=== PATIENT | female | born 1980 | race Caucasian/White ===

== ENCOUNTER 2024-01-14 23:51 | Emergency (ER) | payer BC, SELFPAY ==
[2024-01-14 23:56] VITALS: BP 142/89; PULSE 74; RESP 20; TEMP 36.6; O2SAT 99; BMI 25.1
--- NOTE | 2024-01-15 00:05 | ED.CHESTPAIN ---
HPI - Chest Pain General Time Seen by Provider: 00:06 Date Seen: 01/15/24 Chief Complaint: Chest Pain Stated Complaint: chest tightness, PE in 2008 Time Seen by Provider: 01/15/24 00:05 Source: patient, RN notes reviewed and old records reviewed Mode of arrival: ambulatory Limitations: no limitations History of Present Illness HPI narrative: 43-year-old female who presents today with right-sided chest pain started today. Patient notes some nasal congestion and sore throat 2 days ago, that has resolved. Notes some tightness in the right chest starting today. No cough, no leg swelling. Says this feels a little similar to when she had her PE in the distant past. No abdominal pain. Has not taken anything for this. Not currently on blood thinners, history of factor 5. Related Data Home Medications ?Medication ?Instructions ?Recorded ?Confirmed No Known Home Medications 01/15/24 01/15/24 Allergies Allergy/AdvReac Type Severity Reaction Status Date / Time No Known Drug Allergies Allergy Verified 01/15/24 00:01 Exam Narrative Exam Narrative: General: Well-developed and well-nourished, no acute distress Head: Atraumatic and normocephalic Eyes: Pupils are equal reactive, extraocular motions intact, conjunctiva clear ENT: External nose and ears are normal, posterior pharynx without erythema or exudate Neck: No midline cervical tenderness, full spontaneous range of motion the neck, trachea midline, no adenopathy Heart: Regular rate and rhythm no murmurs or thrills Lungs: Clear to auscultation bilaterally without wheezes or crackles, mild right sternal costal margin tenderness Abdomen: Soft, nontender, nondistended with active bowel sounds Musculoskeletal: No tenderness, deformity, or edema Neurologic: Awake, alert, and oriented x3, no gross focal neurologic deficits, cranial nerves intact as tested Psych: Mood and affect are appropriate Skin: No rashes Const Vital Signs, click to edit/add: Vital Signs - 24 hr 01/14/24 23:56 Temperature 97.9 F Pulse Rate [Right Pulse Oximeter] 74 Respiratory Rate 20 Blood Pressure [Right Upper Arm] 142/89 H Pulse Oximetry 99 Oxygen Delivery Method Room Air Course Course ED Course: Patient seen examined, no prior records available reviewed. Patient presents today with some right-sided chest pain after upper respiratory symptoms a couple of days ago. On exam here, vital is stable with no hypoxia, no tachycardia. Patient is PERC negative, however given history of unprovoked PE in the past is not low risk by well's criteria. Discussed plans for testing, D-dimer will be ordered initially and proceed to CT PE study depending on results. Initial EKG is reassuring. EKG ordered and independently interpreted by me performed at 12:02 a.m. demonstrates sinus rhythm rate 75, no acute ST elevations or depressions, normal intervals, normal axis, QTC 431, MT 146 Reevaluation(s) Time of Reevaluation #1: 00:42 Reevaluation #1: With chest x-ray ordered and independently interpreted by me with no acute infiltrates, no hemothorax or pneumothorax. Labs ordered and independently interpreted by me with normal CBC, troponin negative. Time of Reevaluation #2: 00:56 Reevaluation #2: Labs ordered and independently interpreted by me with negative D-dimer, normal basic panel. Time of Reevaluation #3: 01:16 Reevaluation #3: Updated patient with diagnosis and plan, questions answered and stable for discharge. Vital Signs Vital signs: Initial Vital Signs Temperature 97.9 F 01/14/24 23:56 Temperature Source Temporal Artery Scan 01/14/24 23:56 Pulse Rate 74 01/14/24 23:56 Pulse Rhythm Regular 01/14/24 23:56 Pulse Strength 3+ Normal 01/14/24 23:56 Respiratory Rate 20 01/14/24 23:56 Blood Pressure 142/89 H 01/14/24 23:56 Blood Pressure Mean 106 H 01/14/24 23:56 Blood Pressure Position Sitting 01/14/24 23:56 Pulse Oximetry 99 01/14/24 23:56 Oxygen Delivery Method Room Air 01/14/24 23:56 Vital Signs Temperature 97.9 F 01/14/24 23:56 Pulse Rate 74 01/14/24 23:56 Respiratory Rate 20 01/14/24 23:56 Blood Pressure 142/89 H 01/14/24 23:56 Pulse Oximetry 99 01/14/24 23:56 Oxygen Delivery Method Room Air 01/14/24 23:56 Temperature 97.9 F 01/14/24 23:56 Pulse Rate 74 01/14/24 23:56 Respiratory Rate 20 01/14/24 23:56 Blood Pressure 142/89 H 01/14/24 23:56 Pulse Oximetry 99 01/14/24 23:56 Oxygen Delivery Method Room Air 01/14/24 23:56 MDM - Chest Pain Lab Data Labs: Lab Results 01/15/24 01/15/24 Range/Units 00:25 00:28 WBC 6.06 (4.50-11.00) K/uL RBC 4.32 (4.00-5.20) m/uL Hgb 13.2 (12.0-16.0) gm/dL Hct 38.2 (33.0-51.0) % MCV 88 (80-100) fL MCH 31 (26-34) pg MCHC 35 (32-36) gm/dL RDW Coeff of Capo 11.4 L (11.5-15.5) % Plt Count 234 (140-440) K/uL Neut % (Auto) 46.3 (42.0-72.0) % Lymph % (Auto) 45.9 H (20-44) % Carlisle % (Auto) 6.3 (0.0-11.0) % Eos % (Auto) 0.5 (0.0-7.0) % Baso % (Auto) 0.3 (0.0-3.0) % Neut # (Auto) 2.81 (1.7-7.0) K/uL Lymph # (Auto) 2.80 (0.90-2.90) K/uL Carlisle # (Auto) 0.40 (0.00-0.90) K/UL Eos # (Auto) 0.03 (0.00-0.50) K/uL Baso # (Auto) 0.02 (0.00-0.30) K/uL Abs Immat Gran (auto) 0.04 (0.00-0.30) K/uL Imm/Tot Granulo (auto) 0.7 % D-Dimer Quant (PE/DVT) 0.44 (0.00-0.50) ug/ml Sodium 138 (135-149) mmol/L Potassium 3.7 (3.6-5.1) mmol/L Chloride 106 (96-114) mmol/L Carbon Dioxide 25 (20-32) mmol/L Anion Gap 7 (7-15) mEq/L BUN 16 (5-24) mg/dL Creatinine 0.8 (0.5-1.5) mg/dL Estimated Creat Clear 103.43 Estimated GFR 95 ml/min Glucose 94 (60-115) mg/dL Calcium 9.0 (8.4-10.6) mg/dL HCG, Qual Negative (Negative) Lab Acknowledgement Test Added POC Troponin I 0.00 L (0.01-0.04) ng/ml Discharge Plan Discharge Clinical Impression: Atypical chest pain Patient Disposition: Home, Self-Care Condition: Stable Instructions: Noncardiac Chest Pain (ED), Chest Wall Pain (ED) Additional Instructions: Tylenol and ibuprofen as needed for pain Activity Level: Activity as Tolerated Discharge Diet: Regular Prescriptions: No Action No Known Home Medications Follow Up/Referrals: Provider,Not a Local [Primary Care Provider] - Stand Alone Forms: [facility] Info Instructions
--- NOTE | 2024-01-15 00:17 | CRLHL7_ITS ---
For Patients: As a result of the Cures Act, medical imaging exams and procedure reports are released immediately into your electronic medical record. You may view this report before your referring provider. If you have questions, please contact your health care provider. INDICATION: Dyspnea. TECHNIQUE: Chest radiograph, 1 view. COMPARISON: None. FINDINGS: Cardiovascular/Mediastinum: Normal heart size. Unremarkable. Lungs: No focal consolidation. Airways: Trachea remains midline. Pleura: Trace left pleural effusion. No right pleural effusion. No pneumothorax. Bones: No acute osseous abnormalities. Upper abdomen: Unremarkable. IMPRESSION: Trace left pleural effusion. Otherwise, no other acute cardiopulmonary process. Dictated by Jose Fox MD @ 01/15/2024 1:22:02 AM (Electronically Signed)
[2024-01-15 00:31] LABS: Basophils Absolute Auto 0.02 K/uL (0.00-0.30); Basophils Percent Auto 0.3 % (0.0-3.0); Eosinophils Absolute Auto 0.03 K/uL (0.00-0.50); Eosinophils Percent Auto 0.5 % (0.0-7.0); Hematocrit 38.2 % (33.0-51.0); Hemoglobin* 13.2 gm/dL (12.0-16.0); Immature Granulocytes Abs Auto 0.04 K/uL (0.00-0.30); Immature Granulocytes Pct Auto 0.7 %; Lymphocytes Percent Auto 45.9 % (20-44); Mean Corpuscular HGB Conc 35 gm/dL (32-36); Mean Corpuscular Hemoglobin 31 pg (26-34); Mean Corpuscular Volume 88 fL (80-100); Monocytes Percent Auto 6.3 % (0.0-11.0); Neutrophils Absolute Auto 2.81 K/uL (1.7-7.0); Neutrophils Percent Auto 46.3 % (42.0-72.0); Platelet Count* 234 K/uL (140-440); RDW Coefficient of Variation % 11.4 % (11.5-15.5); Red Blood Count 4.32 m/uL (4.00-5.20); White Blood Count* 6.06 K/uL (4.50-11.00)
[2024-01-15 00:32] VITALS: O2SAT 99
[2024-01-15 00:37] LABS: Slide Review Reflex No
[2024-01-15 00:43] LABS: Chloride* 106 mmol/L (96-114); Potassium* 3.7 mmol/L (3.6-5.1); Sodium* 138 mmol/L (135-149)
[2024-01-15 00:46] LABS: Anion Gap 7 mEq/L (7-15); Blood Urea Nitrogen* 16 mg/dL (5-24); Carbon Dioxide* 25 mmol/L (20-32); Creatinine* 0.8 mg/dL (0.5-1.5); Est. Creatinine Clearance* 103.43; Estimated Glomerular Filt Rate 95 ml/min; Glucose* 94 mg/dL (60-115)
[2024-01-15 00:48] LABS: D Dimer Quantitative* 0.44 ug/ml (0.00-0.50)
[2024-01-15 00:51] LABS: HCG Qualitative Serum* Negative (Negative)
[2024-01-15 01:01] VITALS: BP 131/86; PULSE 69; RESP 20; O2SAT 98
[2024-01-15 01:25] VITALS: BP 122/74; PULSE 78; RESP 20; TEMP 36.6; O2SAT 98
[2024-01-15 01:27] VITALS: BP 122/74; PULSE 78; RESP 20; TEMP 36.6
== END 2024-01-15 01:27 | disposition home or self-care (01) ==
PROVIDERS: Emergency Provider Family Medicine
DX: R07.89 Other chest pain (principal)
CPT/HCPCS: 36415; 71045; 80048; 84484; 84703; 85025; 85379; 93005; 94761; 99284; 99285

== ENCOUNTER 2025-03-28 09:30 | Emergency (ER) | payer BC, SELFPAY ==
--- OUTSIDE RECORDS SUMMARY | 2025-03-28 09:34 | XMS_ITS | Clinical Summary ---
Author Organization [facility] Address [address] [place] [id number] Care Team Providers Care Marketing Agent Name Role Phone Haim Barron MD Primary Care Provider [phone] Allergies No known active allergies Medications Vit-Fe Fumarate-FA ( MULTIVITAMIN PLUS IRON) 27-0.8 MG TABS Take 1 tablet by mouth daily Active Ranitidine HCl (ZANTAC PO)Indications:G astroesophageal Reflux Disease Take 150 mg by mouth 2 times daily Active enoxaparin (LOVENOX) 40 MG/0.4ML injectionIndicat ions:Spontaneous vaginal delivery Inject 0.4 mLs (40 mg) Subcutaneous every 24 hours 30 Syringe 1 7 Active ibuprofen (ADVIL/MOTRIN) 400 MG tabletIndication s:Spontaneous vaginal delivery Take 1-2 tablets (400-800 mg) by mouth every 6 hours as needed for other (cramping) 120 tablet 7 Active ferrous sulfate (IRON) 325 (65 FE) MG tabletIndication s:Spontaneous vaginal delivery Take 1 tablet (325 mg) by mouth daily 60 tablet 7 Active Active Problems Problem Noted Date Diagnosed Date care following vaginal delivery 02/20 (spontaneous vaginal delivery) 02/20/2017 Overview (02/20/2017): MIL for PIH with cervical ripening with cervidil. AROM, pitocin, epidural, , OA, viable female with 2nd degree epis and repair. On lovanox antepartem, suspended for induction and will resume in 24 hours. Normal labor and delivery 02/19/2017 Pseudotumor cerebri 07/06/2014 Overview (07/06/2014): Unrelenting headaches in first trimester of lead to referral to Neuro and subsequent diagnosis of pseudotumor. Good response to diamox and relief of headaches within a few days. Spontaneous vaginal delivery 07/06/2014 Overview (07/06/2014): Medical induction of labor due to oligo that was diagnosed on BPP done 07/04/14. Female infant, 7#13oz. 2nd degree median epis. With repair Vaginal delivery 07/06/2014 Labor and delivery, indication for care 07/04/19 15 Indication for care in labor or delivery 015 CARDIOVASCULAR SCREENING; LDL GOAL LESS THAN 160 03/01/2012 DVT (deep venous thrombosis) 03/01/2012 PE (pulmonary embolism) 03/01/2012 Factor V Leiden mutation 03/01/2012 Immunizations Immunization Administration Dates Next Due Influenza (IIV3) PF 03/25/2014 MMR (MMRII) 07/07/2014 TDAP (Adacel,Boostrix) 05/06/2014,02/24/2011 Family History Medical History Relation Comments Diabetes Maternal Grandfather Heart Disease Maternal Grandmother Relation Status Comments Father Alive Maternal Grandfather Maternal Grandmother Mother Alive Social History Tobacco Use Types Packs/Day Years Used Date Smoking Tobacco: Never Smokeless Tobacco: Never Alcohol Use Standard Drinks/Week Comments Yes 0 (1 standard drink = 0.6 oz pur e alcohol) socially Adolescent Education Answer Date Record ed Getting School Help Needed Not on file 03/17 Comments No Sex and Gender Information Value Date Recorded Sex Assigned at Not on file Legal Sex Female 5:04 AM WHEEL FITTER Gender Identity Not on file Sexual Orientation Not on file Last Filed Vital Signs Vital Sign Reading Time Taken Comments Blood Pressure 121/77 10/07/2022 1:01 PM CDT Pulse 77 10/07/2022 1:01 PM CDT Temperature 36.7 C (98.1 F) 10/07/2022 9:18 AM CDT Respiratory Rate 18 10/07/2022 9:18 AM CDT Oxygen Saturation 99% 10/07/2022 1:01 PM CDT Inhaled Oxygen Concentration - - Weight 81.8 kg (180 lb 5.4 oz) 05/02/2021 3:26 P M WHEEL FITTER Height 180.3 cm (5' 11) 07/05/2014 7:35 AM WHEEL FITTER Body Mass Index 25.15 07/05/2014 7:35 AM WHEEL FITTER Plan of Treatment Health Maintenance Due Date Last Done Comments ADVANCE CARE PLANNING 1982 ANNUAL REVIEW OF HM ORDERS 1982 HEPATITIS B VACCINE (2 of 3 - 3-dose series) 01/13/2000 12/16/1999 HEPATITIS C SCREENING 2000 PAP 11/04/2003 YEARLY PREVENTIVE VISIT 08/09/2022 08/09/2021 LIPID 2022 MAMMO SCREENING 07/12/2023 07/12/2021, 07/12/2021 PHQ-2 (once per calendar year) 2024 COVID-19 VACCINE ( season) 2025 06/02/2021, 09/30/2020, 09/02/2020 INFLUENZA VACCINE (#1) 2025 , 05/14/2020, 02/28/2017, Additional history exists DIABETES SCREENING 10/07/2025 10/07/2022, 1 07/02/2020, 02/19/2017, Additional history exists DTAP/TDAP/TD VACCINE (10 - Td or Tdap) 12/12/2026 12/12/2016, 05/06/2014, 02/24/2011, Additional history exists ZOSTER VACCINE (1 of 2) 2032 HIV SCREENING Completed 06/23/2016, 12/03/2013 HPV VACCINE (No Doses Required) Completed MENINGITIS VACCINE Aged Out No longer eligible based on patient's age to complete this topic PNEUMOCOCCAL VACCINE: PEDIATRICS (0 to 5 YEARS) AND AT-RISK PATIENTS (6 to 49 YEARS) Aged Out No longer eligible based on patient's age to complete this topic Procedures Procedure Name Priority Date/Time Associated Diagnosis Comments BASIC METABOLIC PANEL STAT 10/07/2022 11:43 AM CDT HIV ANTIGEN ANTIBODY COMBO Routine 06/23/2016 from Last 3 Months or Most Recently Relevant to Health Maintenance Results * (ABNORMAL) Basic metabolic panel (10/07/2022 11:43 AM CDT) Sodium 137 136 - 145 mmol/L 10/07/2022 12:12 PM CDT LABORATORY Potassium 4.2 3.4 - 5.3 mmol/L 10/07/2022 12:12 PM CDT LABORATORY Chloride 101 98 - 107 mmol/L 10/07/2022 12:12 PM CDT LABORATORY Carbon Dioxide (CO2) 25 22 - 29 mmol/L 10/07/2022 12:12 PM CDT LABORATORY Anion Gap 11 7 - 15 mmol/L 10/07/2022 12:12 PM CDT LABORATORY Urea Nitrogen 14.1 6.0 - 20.0 mg/dL 10/07/2022 12:12 PM CDT LABORATORY Creatinine 0.90 0.51 - 0.95 mg/dL 10/07/2022 12:12 PM CDT LABORATORY Calcium 9.5 8.6 - 10.0 mg/dL 10/07/2022 12:12 PM CDT LABORATORY Glucose 104(H) 70 - 99 mg/dL 10/07/2022 12:12 PM CDT LABORATORY GFR Estimate 83 >60 mL/min/1.7 3m2 10/07/2022 12:12 PM CDT LABORATORY Comment:eGFR calculated usin 2020 CKD-EPI equation. Blood STRUCTURE OF RIGHT UPPER LIMB / Unknown Venipuncture / Unknown 10/07/2022 11:43 AM CDT 10/07/2022 11:50 AM CDT Luis Miguel Langston PA-C LAB - BLOOD ORDERABLES Final Result LABORATORY [facility] [address] Lab (1st floor, no room number) [place] [address], [facility] [phone] * HIV Antigen Antibody Combo (06/23/2016) HIV Antigen Antibody Combo nonreactive Blood specimen (specimen) Patient Reported LAB - BLOOD ORDERABLES Final Re sult from Last 3 Months or Most Recently Relevant to Health Maintenance Insurance [facility] [employer] [place] [id number] Care Teams Marketing Agent Relationship Specialty Start Date End Date Haim Barron MD [address] [place], [place] [id number] PCP - General Family Medicine 05/02/21
--- OUTSIDE RECORDS SUMMARY | 2025-03-28 09:34 | XMS_ITS | Clinical Summary ---
Author Organization [facility] Address [address] [place] [address] Care Team Providers Care Spice Mixer Name Role Phone Clinic, No Pcp Or Primary Care Provider Unavaila ble Allergies No known active allergies Medications benzonatate (TESSALON) 200 mg capsuleIndicatio ns:Cough, unspecified type Take 1 Capsule (200 mg) by mouth 3 times daily if needed for Cough. 15 Capsule 04/05/2024 Active inhalational spacing deviceIndication s:Cough, unspecified type For home use. 1 Each 04/05/2024 Active Active Problems Problem Noted Date Diagnosed Date care following vaginal delivery 02/20 Pseudotumor cerebri 07/06/2014 Overview (04/05/2024): Unrelenting headaches in first trimester of lead to referral to Neuro and subsequent diagnosis of pseudotumor. Good response to diamox and relief of headaches within a few days. Normal labor and delivery 07/02/2014 Encounter for full-term uncomplicated delivery 0 03/01/2012 Overview (04/05/2024): MPP Consult 01/11/13 Spoke with [facility] triage. Antiphospholipid antibody syndrome labs ordered by Dr. Arredondo on 01/03/13 but none in [facility]. Will check on this and have patient drawn if this was not done. Also will try to obtain Factor V lab (noted in problem list but no hard copy scanned into [facility]) and previous hematology consults. (01/09/13) Medical induction of labor due to oligo that was diagnosed on BPP done 07/04/14. Female , 7#13oz. 2nd degree median epis. With repair DVT (deep venous thrombosis) 03/01/2012 Pulmonary embolism 03/01/2012 Missed 12/23/2011 History of pulmonary embolism 12/14/2011 Anticoagulated 12/14/2011 Factor V Leiden mutation 03/02/2011 Resolved Problems Problem Noted Date Diagnosed Date Resolved Date Missed 12/22/2011 12/24/2012 Immunizations Immunization Administration Dates Next Due DTaP 12/01/1987, 4,05/09/1983,03/03/1983, 01/05/1983 HIB PRP-OMP (PedvaxHIB) 01/27/1986 Hepatitis B (Peds) 12/16/1999 Inactivated Polio Vaccine 12/01/1987,05/07/1984, 03/03/1983,01/05/1983 Influenza, IIV3 (Age >=3 years) 03/25/2014 Influenza, IIV4 08/09/2021,05/14/2020 Influenza, IIV4 (=>6mos) MDV 02/28/2017 Influenza,CCIIV4 PRESERV FREE 03/20/2023 MMR 07/07/2014,12/17/1993,01/25/1984 Tdap 12/12/2016,05/06/2014,02/24/2011 ,07/27/2008 Family History Medical History Relation Name Comments Diabetes Maternal Grandfather Heart Disease Maternal Grandmother Possib le blood clot Hypertension Mother Cancer Paternal Aunt skin Cancer Paternal Grandmother skin ca ncer Relation Name Status Comments Brother Alive Father Alive Maternal Grandfather Maternal Grandmother (Age 36) Mother Alive Paternal Aunt Paternal Grandfather Alive Paternal Grandmother Social History Tobacco Use Types Packs/Day Years Used Date Smoking Tobacco: Never Smokeless Tobacco: Never Tobacco Cessation:Counseling Given: No Alcohol Use Standard Drinks/Week Comments Yes 0.8 (1 standard drin k = 0.6 oz pure alcohol) occasional- not during Comments No Sex and Gender Information Value Date Recorded Sex Assigned at Not on file Legal Sex Female 7:28 AM SHAPER HAND Gender Identity Not on file Sexual Orientation Not on file Obstetrics History Para Term AB IAB SAB Ectopic Multiple Livin g Live Births 2 0 0 0 1 0 1 0 0 0 Date Outcome GA Total Labor Labor/2nd/3rd Weight Sex Type Anes PTL Courtney A1 A5 Name Clin Comments:System [facility]. Please review and update details. 2 SAB 7w0 d Last Filed Vital Signs Vital Sign Reading Time Taken Comments Blood Pressure 122/84 04/05/2024 12:00 PM CDT Pulse 86 04/05/2024 12:00 PM CDT Temperature 36.5 C (97.7 F) 04/05/2024 11:05 AM CDT Respiratory Rate 16 04/05/2024 11:05 AM CDT Oxygen Saturation 98% 04/05/2024 11:05 AM CDT Inhaled Oxygen Concentration - - Weight 81.6 kg (180 lb) 04/05/2024 11:05 AM CDT Height 180.3 cm (5' 11) 04/05/2024 11:05 AM CDT Body Mass Index 25.1 04/05/2024 11:05 AM CDT Plan of Treatment Health Maintenance Due Date Last Done Comments Depression screening for age 12+ 1994 Hepatitis B series for 19+ (2 of 3 - 3-dose series) 01/13/2000 12/16/1999 BMI (ht and wt on same day) for age 18+ 2000 HPV series for age 9-45 (1 - 3-dose SCDM series) 2009 Pap test for age 21-65 03/19/2015 03/19/2012, 2010 COVID-19 vaccine series ( season) 2025 06/02/2021, 09/30/2020, 09/02/2020 Influenza Vaccine (#1) 2025 3, 08/09/2021, 05/14/2020, Additional history exists Tetanus booster 12/12/2026 12/12/2016, 04/26, 02/24/2011, Additional history exists RSV vaccine for adults or (1 - 1-dose 75+ series) 2057 HIV for age 15-65 Completed 03/19/2012 Hepatitis C screening for age 18-79 Completed 03/19/2012 Pneumococcal series for age 6-49 Aged Out No longer eligible based on patient's age to complete this topic Procedures Procedure Name Priority Date/Time Associated Diagnosis Comments DIRECTOR NURSING SERVICE THIN PREP PAP SCREEN IMAGED Routine 03/19/2012 4:53 PM CDT Screening for malignant neoplasm of the cervix ANTI HIV 1/2 Routine 03/19/2012 4:37 PM CDT Screen for STD (sexually transmitted disease) Vaginal discharge ANTI HCV Routine 03/19/2012 4:37 PM CDT Screen for STD (sexually transmitted disease) Vaginal discharge from Last 3 Months or Most Recently Relevant to Health Maintenance Results * DIRECTOR NURSING SERVICE THIN PREP PAP SCREEN IMAGED (03/19/2012 4:53 PM CDT) CYTOLOGY CYTOPATHOLOGY REPORT [facility] Status: Final Status [id number] CLINICAL INFORMATION Last Date of LMP :03/10/2012 Last Pap Date :03/02/2011 Last Pap Result :NIL ABN [place]/Bx Past 5 YRS :None Hormone Usage :None Menstrual Status :Regular Periods [place]/Bx done today :No Additional Information :None given HPV Request :HPV if ASCUS SPECIMEN SOURCE :Cervical/vaginal ThinPrep Vial, screening SPECIMEN ADEQUACY :Satisfactory for evaluation Endocervical component present. INTERPRETATION/RES ULT Negative for intraepithelial lesion or malignancy (NIL) Cytology 1st Screener :tavo Signed by :tavo This specimen was screened by the FDA approved ThinPrep Imaging System and manually reviewed. NOTE: The Pap test is a screening technique, not a diagnostic procedure. It is used primarily to screen for squamous cancers and precursor lesions. Published studies have shown that it is subject to both false negative and false positive results. The pap test should not be used as the sole means to diagnose or exclude pre-malignant and malignant lesions. COLLECTED:03/19/12 ACCESSIONED: 03/20/12 SIGNED: 03/21/12 [facility] PAP [place] CODE NIL [facility] Tissue specimen (specimen) (Cervical/Vagina l) 03/19/2012 4:53 PM CDT 03/19/2012 4:51 PM CDT Arely Arredondo DO PATHOLOGY/CYTOLOGY Final R esult Performing Organization Address City/[facility]/ZIP Co de Phone Number [facility] INTERNAL ZIP [phone] [place] [phone] * ANTI HCV (03/19/2012 4:37 PM CDT) ANTI HCV Non-reacti ve [facility] Blood specimen (specimen) BLOOD SPECIMEN / Unknown 03/19/2012 4:37 PM CDT 03/19/2012 4:33 PM CDT us Arely Arredondo DO SEND OUTS Final Resu lt Performing Organization Address [facility] Co de Phone Number [facility] INTERNAL ZIP [phone] [place] [phone] * ANTI HIV 1/2 (03/19/2012 4:37 PM CDT) ANTI HIV 1/2 Non-reacti ve [facility] Blood specimen (specimen) BLOOD SPECIMEN / Unknown 03/19/2012 4:37 PM CDT 03/19/2012 4:33 PM CDT us Arely Arredondo DO SEND OUTS Final Resu lt Performing Organization Address [facility]/ZIP Co de Phone Number [facility] INTERNAL ZIP [phone] [place] [phone] from Last 3 Months or Most Recently Relevant to Health Maintenance Insurance FED EMP FED EMP FED EMP Advance Directives * Full Code (Latest Code Status on File) Date Activated Date Inactivated Comments 12/23/2011 10:24 AM 12/23/2011 4:21 PM Care Teams Spice Mixer Relationship Specialty Start Date End Date Clinic, No Pcp Or . PCP - General 04/05/24
[2025-03-28 09:52] VITALS: BP 126/86; PULSE 74; RESP 16; TEMP 36.7; O2SAT 99; BMI 26.9
[2025-03-28 10:27] VITALS: BP 134/95; PULSE 73; RESP 16; TEMP 36.7; O2SAT 99
--- NOTE | 2025-03-28 10:44 | CRLHL7_ITS ---
For Patients: As a result of the Century Cures Act, medical imaging exams and procedure reports are released immediately into your electronic medical record. You may view this report before your referring provider. If you have questions, please contact your health care provider. Indication: New onset of headache Technique: Volumetric multidetector CT images of the head were obtained with and without the administration of low osmolar intravenous contrast. 95 cc Isovue 370 low osmolar intravenous contrast Comparison: None available. Findings: There is no intra-axial or extra-axial fluid collection. There is no mass effect or midline shift. The ventricles and sulci are normal in size and position for age. The brain parenchyma is normal in attenuation with preserved wadsworth-white differentiation. 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 No evidence of pituitary enlargement or encroachment of the suprasellar cistern. Demonstration of a small arachnoid granulation within the medial left transverse sinus. There is no evidence of abnormal contrast enhancement. The orbits and their contents are grossly within normal limits. The bony calvarium is grossly intact. The paranasal sinuses are clear. The mastoid air cells are well aerated. Impression: No acute intracranial abnormality or abnormal contrast enhancement. Please note that all CT scans at this facility use dose modulation, iterative reconstruction, and/or weight-based dosing when appropriate to reduce radiation dose to as low as reasonably achievable. Dictated by Alexandr Farooq MD @ 03/28/2025 11:47:40 AM (Electronically Signed)
--- NOTE | 2025-03-28 11:22 | ED.HA ---
HPI - Headache General Date Seen: 03/28/25 Chief Complaint: Headache/Migraine Stated Complaint: Headaches and pressure Time Seen by Provider: 03/28/25 09:32 Source: patient Mode of arrival: ambulatory Limitations: no limitations History of Present Illness HPI Narrative: Patient is a 44-year-old female presenting to the emergency department for headache. She states she has been getting on a headaches lateral to the mild for the past year but over the past week and half they have been getting acutely worse. Has no history of recurrent headaches prior to this. States she is feeling of pressure and her forehead. Pain does not seem to radiate anywhere. Does states she has a history of pseudotumor cerebri when she is 10 years ago. Also has history of factor 5. States the pain is tolerable when she takes Aleve but did not take any today because she want to be able to best described the symptoms when she got here. She states overall the pain is more annoying than painful and overall is tolerable. Denies vision changes, weakness, numbness, lightheadedness, dizziness, abdominal pain, chest pain, shortness of breath. Related Data Previous Rx's ?Medication ?Instructions ?Recorded ketorolac 10 mg tablet 10 mg PO Q6H PRN pain #20 tabs 03/28/25 Allergies Allergy/AdvReac Type Severity Reaction Status Date / Time No Known Drug Allergies Allergy Verified 03/28/25 11:26 Review of Systems Status of ROS: Reports: 10 or more systems reviewed and unremarkable except as noted in History and below PFSH PFS Medical History Factor V Leiden ?D68.51 - Activated protein C resistance (ICD-10) Pulmonary embolism ?I26.99 - Other pulmonary embolism without acute cor pulmonale (ICD-10) Surgical History No significant past surgical history Social History Smoking Status: Never smoker Second hand tobacco smoke exposure: No How often do you have a drink containing alcohol: never AUDIT-C Alcohol total score: 0 Non-prescribed substance use: denies use Exam Narrative: Exam Narrative: Const: Well-nourished, Well-developed, in mild distress Eyes: PERRL, no conjunctival injection, and symmetrical lids HENT: Atraumatic external nose and ears. Moist mucous membranes. Neck: Symmetric, trachea midline, No thyromegaly. CVS: RRR, No murmurs or gallops. Peripheral pulses 2+ and equal in all extremities RESP: Unlabored respiratory effort. Clear to auscultation bilaterally. GI: Nontender/Nondistended, No rebound or guarding. MSK:Extremities w/o deformity, Normal Active ROM Skin: Warm, Dry. No rashes or lesions. Neuro: Normal Muscle tone, Cranial nerves 2-12 grossly intact, normal [id number], normal [id number], normal gait, normal strength 5/5 upper lower extremities bilaterally, normal sensation upper and lower extremities bilaterally, normal rapid alternating movements. Psych: Awake, Alert, & Oriented x3. Appropriate mood and affect. Const: Vital Signs, click to edit/add: Vital Signs - 24 hr 03/28/25 09:52 03/28/25 10:27 Temperature 98.1 F 98.1 F Pulse Rate [Pulse Oximeter] 74 73 Respiratory Rate 16 16 Blood Pressure [Ri ght Upper Arm] 126/86 134/95 H Pulse Oximetry 99 99 Oxygen Delivery Me thod Room Air Room Air Course Vital Signs Vital signs: Initial Vital Signs Temperature 98.1 F 03/28/25 09:52 Temperature Source Temporal Artery Scan 03/28/25 09:52 Pulse Rate 74 03/28/25 09:52 Pulse Rhythm Regular 03/28/25 09:52 Respiratory Rate 16 03/28/25 09:52 Blood Pressure 126/86 03/28/25 09:52 Blood Pressure Mean 99 03/28/25 09:52 Blood Pressure Position Sitting 03/28/25 09:52 Pulse Oximetry 99 03/28/25 09:52 Oxygen Delivery Method Room Air 03/28/25 09:52 Vital Signs Temperature 98.1 F 03/28/25 09:52 Pulse Rate 74 03/28/25 09:52 Respiratory Rate 16 03/28/25 09:52 Blood Pressure 126/86 03/28/25 09:52 Pulse Oximetry 99 03/28/25 09:52 Oxygen Delivery Method Room Air 03/28/25 09:52 Temperature 98.1 F 03/28/25 10:27 Pulse Rate 73 03/28/25 10:27 Respiratory Rate 16 03/28/25 10:27 Blood Pressure 134/95 H 03/28/25 10:27 Pulse Oximetry 99 03/28/25 10:27 Oxygen Delivery Method Room Air 03/28/25 10:27 MDM - Headache MDM Narrative Medical decision making narrative: Patient is a 44-year-old female presenting to the emergency department for a headache. Considering her descriptions of headaches and of the relatively new I will do a CT scan with IV contrast for better evaluation for any possible intracranial abnormalities. She does not want any pain medication at this time. Head imaging reviewed by myself and the radiologist shows no acute concerning abnormalities. This time I do believe she is safe for discharge. She may be developing migraines and she should follow up with her primary care provider. She is agreeable to this plan. Will provider Toradol for her headaches. She is agreeable to this. Imaging Data CT scan - head: Attestation: I have reviewed the pertinent imaging results. Radiologist's impression: No acute intracranial abnormality or abnormal contrast enhancement. Please note that all CT scans at this facility use dose modulation, iterative reconstruction, and/or weight-based dosing when appropriate to reduce radiation dose to as low as reasonably achievable. Dictated by Alexandr Farooq MD @ 03/28/2025 11:47:40 AM Discharge Plan Discharge Clinical Impression: Headache Qualifiers: Headache type: unspecified Headache chronicity pattern: acute headache Intractability: not intractable Qualified Code(s): R51.9 - Headache, unspecified Patient Disposition: Home, Self-Care Condition: Stable Instructions: Acute Headache (DC) Additional Instructions: If these headaches persist I recommend close follow-up the primary care provider to be evaluated for migraines. They may refer you to neurology. When using the Toradol do not take other NSAIDs, for example naproxen or ibuprofen. You can use Tylenol though as it is a different class of drugs. Return to emergency department for new or worsening symptoms. Prescriptions: New ketorolac 10 mg tablet 10 mg PO Q6H PRN (Reason: pain) Qty: 20 0RF Rx Instructions: maximum total duration of 5 days from all oral, intranasal, or parenteral formulations Follow Up/Referrals: Provider,Not a Local [Primary Care Provider, Family Practice] Stand Alone Forms: [employer] Info Instructions
[2025-03-28] MEDS: KETOROLAC 10 MG TABLET PO (12:05)
[2025-03-28 12:18] VITALS: BP 134/95; PULSE 83; RESP 18; TEMP 36.7
== END 2025-03-28 12:19 | disposition home or self-care (01) ==
PROVIDERS: Emergency Provider Student in an Organized Health Care Education/Training Program
DX: R51.9 Headache, unspecified (principal)
CPT/HCPCS: 70470; 99283; 99284; A9270; Q9967